=== PATIENT | male | born 1940 | race Caucasian/White ===

== ENCOUNTER 2022-10-24 20:53 | Inpatient (IN) | payer MEDICARE, MEDICAID ==
[~2022-10-24] VITALS: Ht 162.6 cm; Wt 54.9 kg
[2022-10-24] MEDS ORDERED: IV NORMAL SALINE 1000 ML BAG IV ONE (21:15)
[2022-10-24 21:22] LABS: HEMATOCRIT 41.4 % (36.7-47.1); MEAN CORPUSCULAR HEMOGLOBIN 30.2 uug (23.8-33.4); MEAN CORPUSCULAR VOLUME 91.4 fL (73.0-96.2); PLATELET COUNT (AUTO) 198 K/uL (152-348)
[2022-10-24 21:39] LABS: CARBON DIOXIDE 33 mmol/L (21-32); CHLORIDE 106 mmol/L (98-107); CREATININE 1.4 mg/dL (0.6-1.3); GLUCOSE 151 mg/dL (74-106); POTASSIUM 3.7 mmol/L (3.5-5.1); UREA NITROGEN, BLOOD 36 mg/dL (7-18)
--- NOTE | 2022-10-24 21:44 | NUR ---
Patient incontinent in brief. Had large yellow urine. Unable to collect urine sample this time.
--- NOTE | 2022-10-24 21:50 | NUR ---
Performed skin assessment. Noted some bruising to mid upper back. Per son, patient had a fall 2 days ago at home and patient landed on his bottom.
[2022-10-24 21:51] LABS: ALANINE AMINOTRANSFERASE 18 U/L (16-63); ALKALINE PHOSPHATASE 138 U/L (50-136); ASPARTATE AMINOTRANSFERASE 51 U/L (15-37); BILIRUBIN,DIRECT 0.1 mg/dL (0.0-0.2); BILIRUBIN,TOTAL 0.4 mg/dL (0.2-1.0); TOTAL PROTEIN, SERUM 7.8 g/dL (6.4-8.2)
[2022-10-24] MEDS ORDERED: AZITHROMYCIN IV 500 MG in IV DEXTROSE 5% 250 ML IV ONE (22:00)
[2022-10-24] MEDS ORDERED: CEFTRIAXONE 1 G in IV DEXTROSE 5% 50 ML IV ONE (22:00)
[2022-10-24 22:06] LABS: MAGNESIUM 2.1 mg/dL (1.8-2.4)
[2022-10-24] MEDS ORDERED: CARB25TA3 PO (22:07)
[2022-10-24] MEDS ORDERED: LEVE500T20 PO ×2 (22:07→22:48)
[2022-10-24] MEDS ORDERED: ATOR10TA PO (22:07)
[2022-10-24] MEDS ORDERED: CLONIDINE HCL 0.1 MG TABLET ONE (22:09)
[2022-10-24] MEDS ORDERED: CEFTRIAXONE /D5W 50ML IVPB **ER PYXIS IV ONE (22:09)
[2022-10-24] MEDS ORDERED: CLONIDINE HCL 0.1 MG TABLET PO ONE (22:15)
--- NOTE | 2022-10-24 22:15 | NUR ---
Patient has been admitted by Chiki Villegas LABOR SERVICE REPRESENTATIVE
[2022-10-24] MEDS ORDERED: AZITHROMYCIN 500MG/ D5W 250ML IVPB **ER PYXIS ONLY IV ONE (22:34)
[2022-10-24] MEDS ORDERED: CARB1TAB39 PO (22:48)
[2022-10-24] MEDS ORDERED: LOSA50TA39 PO (22:48)
[2022-10-24] MEDS ORDERED: ATOR20TA PO (22:48)
[2022-10-25] MEDS ORDERED: IV 1/2NS 1000 ML 1,000 ML IV PRN
[2022-10-25] MEDS ORDERED: ACETAMINOPHEN 325 MG TABLET PO PRN
[2022-10-25] MEDS ORDERED: ONDANSETRON 4 MG/2 ML VIAL IV PRN
[2022-10-25] MEDS ORDERED: hydrALAZINE HCL 20 MG/1 ML VIAL IV PRN
[2022-10-25] MEDS ORDERED: REMEDY ESSENTIAL ZINC PASTE 113 GM TP PRN
--- NOTE | 2022-10-25 00:50 | NUR ---
IN N OUT cath cancelled. Patient was able to provide urine sample
--- NOTE | 2022-10-25 00:54 | NUR ---
Urine sent to lab
--- NOTE | 2022-10-25 00:54 | NUR ---
Patient pulled out IV on right hand. Replaced #20G to left AC.
[2022-10-25] MEDS ORDERED: hydrALAZINE HCL 20 MG/1 ML VIAL ONE (01:17)
[2022-10-25 01:25] LABS: *BILIRUBIN,URIN NEGATIVE (NEGATIVE); *BLOOD, URINE 2+ (NEGATIVE); *COLOR,URINE YELLOW (YELLOW); *KETONES,URINE NEGATIVE (NEGATIVE); LEUKOCYTE ESTERASE ,URINE 1+ (NEGATIVE); NITRITE, URINE NEGATIVE (NEGATIVE); PH,URINE 6.5 (5.0-8.0); UGLUCOSE NEGATIVE (NEGATIVE)
[2022-10-25 01:28] LABS: *CLARITY,URINE SLIGHTLY CLOUDY (CLEAR)
--- NOTE | 2022-10-25 01:30 | NUR ---
Patient taken to CT via gurney.
--- NOTE | 2022-10-25 02:22 | NUR ---
Called upstairs to give report. Nurse unavaliable at this time. Waiting for call back.
[2022-10-25 02:47] LABS: RBC,URINE 20-50 /HPF (0-3)
[2022-10-25 02:48] LABS: BACTERIA,URINE MODERATE /HPF (NONE SEEN); SQUAMOUS EPITHELIAL CELL,UR NONE SEEN /HPF (NONE SEEN)
--- NOTE | 2022-10-25 02:50 | NUR ---
Report given to Bob MERRITT.
--- NOTE | 2022-10-25 03:04 | NUR ---
REPORT RECEIVED FROM EDDIE MERRITT.
--- NOTE | 2022-10-25 03:04 | NUR ---
Called son Rachel to verify Code Status of patient. Unable to reach, voicemail is full.
--- NOTE | 2022-10-25 03:20 | NUR ---
Patient taken to third floor room 316 with personal belongings via gurney. Patient in stable conditions, no signs of distress. Bob RN aware of patients arrival.
[2022-10-25 03:30] VITALS: BP 146/72
--- NOTE | 2022-10-25 03:30 | NUR ---
PATIENT ADMITTED FROM ER VIA GURNEY IN STABLE CONDITION. NO RESP DISTRESS OR SOB NOTED. PATIENT GENTLY TRANSFERRED TO BED AND MADE COMFORTABLE. PATIENT IS FARSI SPEAKING. BELONGINGS INVENTORIED. ALL NEEDS MET AND ANTICIPATED. CALL LIGHT IN REACH AND FUNCTIONAL. WILL CONTINUE TO MONITOR.
[2022-10-25] MEDS: PANTOPRAZOLE SODIUM 40 MG TABLET.DR PO SCH (06:03)
[2022-10-25 07:52] LABS: CREATININE 1.3 mg/dL (0.6-1.3); MAGNESIUM 2.1 mg/dL (1.8-2.4); PHOSPHOROUS 3.4 mg/dL (2.5-4.9); POTASSIUM 3.8 mmol/L (3.5-5.1)
[2022-10-25 07:55] LABS: HEMATOCRIT 38.3 % (36.7-47.1); MEAN CORPUSCULAR VOLUME 90.6 fL (73.0-96.2); PLATELET COUNT (AUTO) 180 K/uL (152-348)
[2022-10-25 07:59] LABS: THYROID STIMULATING HORMONE 1.611 mIU/mL (0.358-3.740)
[2022-10-25] MEDS: levETIRAcetam 250 MG TABLET PO SCH ×2 (09:19→21:00)
[2022-10-25] MEDS: LOSARTAN POTASSIUM 50 MG TABLET PO SCH ×2 (09:35→21:00)
[2022-10-25 11:37] VITALS: BP 127/63
[2022-10-25] MEDS ORDERED: CARB1TAB21 PO ×2 (14:27)
[2022-10-25] MEDS ORDERED: LEVE250T4 PO (14:27)
[2022-10-25] MEDS: CEFTRIAXONE 1 G in IV DEXTROSE 5% 50 ML IV SCH (17:50)
[2022-10-25] MEDS ORDERED: CARBIDOPA/LEVODOPA CR 25-100MG TABLET.SA PO SCH (18:15)
[2022-10-25] MEDS ORDERED: levETIRAcetam 250 MG TABLET PO SCH (18:15)
[2022-10-25 20:00] VITALS: BP 166/85
[2022-10-25] MEDS: AZITHROMYCIN IV 500 MG in IV DEXTROSE 5% 250 ML IV SCH (20:06)
[2022-10-25] MEDS: ATORVASTATIN 20 MG TABLET PO SCH (21:00)
[2022-10-25] MEDS: CARBIDOPA/LEVODOPA 25-100MG TABLET PO SCH (21:00)
[2022-10-25 22:24] VITALS: BP 114/61
[2022-10-26] VITALS: BP 141/70
--- NOTE | 2022-10-26 00:37 | NUR ---
Troponin results 256 relayed to Pauline Pacheco NP no new order.
[2022-10-26] MEDS ORDERED: ACETAMINOPHEN 650 MG SUPP.RECT RC PRN (01:15)
[2022-10-26] MEDS ORDERED: levETIRAcetam 500 MG/5 ML VIAL IV ONE (01:50)
[2022-10-26] MEDS: levETIRAcetam IV 250 MG in IV DEXTROSE 5% 100 ML IV SCH ×3 (02:07→21:37)
[2022-10-26 04:00] VITALS: BP 119/67
--- NOTE | 2022-10-26 06:24 | NUR ---
Patient slept intermittently, responsive to verbal and tactile stimuli. Refused po meds. Tylenol changed to supp and keppra changed to IV. In no acute distress, no signs of pain/discomfort. Sinus rhythm on tele. IV access to LAC intact and patent. Needs assessed and attended to.
[2022-10-26] MEDS: PANTOPRAZOLE SODIUM 40 MG TABLET.DR PO SCH (06:36)
[2022-10-26 07:14] LABS: HEMATOCRIT 35.6 % (36.7-47.1); MEAN CORPUSCULAR HEMOGLOBIN 29.7 uug (23.8-33.4); MEAN CORPUSCULAR VOLUME 90.2 fL (73.0-96.2); PLATELET COUNT (AUTO) 160 K/uL (152-348)
[2022-10-26 07:32] LABS: BILIRUBIN,TOTAL 0.7 mg/dL (0.2-1.0); CREATININE 1.3 mg/dL (0.6-1.3); MAGNESIUM 2.2 mg/dL (1.8-2.4); PHOSPHOROUS 4.2 mg/dL (2.5-4.9); POTASSIUM 3.6 mmol/L (3.5-5.1); TOTAL PROTEIN, SERUM 6.5 g/dL (6.4-8.2)
[2022-10-26] MEDS: LOSARTAN POTASSIUM 50 MG TABLET PO SCH ×2 (08:58→20:38)
[2022-10-26] MEDS: CARBIDOPA/LEVODOPA 25-100MG TABLET PO SCH ×4 (08:58→20:37)
[2022-10-26 11:48] VITALS: BP 139/57
--- NOTE | 2022-10-26 15:01 | NUR ---
Pt. is awake. Non verbal. No acute distress noted. No s/s of pain noted. All need attended and met. IV line clean and intact. Needs assist for meal. Pt. is incontinent and is on diaper. Will keep monitoring the patient.
[2022-10-26 16:59] VITALS: BP 150/82
[2022-10-26] MEDS: CEFTRIAXONE 1 G in IV DEXTROSE 5% 50 ML IV SCH (18:04)
--- NOTE | 2022-10-26 20:00 | NUR ---
Received patient in bed, awake, confused. Son at bedside. No SOB, not on any form of distress. IV access on LAC intact and patent.
[2022-10-26] MEDS: AZITHROMYCIN IV 500 MG in IV DEXTROSE 5% 250 ML IV SCH (20:27)
[2022-10-26] MEDS: ATORVASTATIN 20 MG TABLET PO SCH (20:37)
[2022-10-26 20:41] VITALS: BP 137/67
[2022-10-27 00:06] VITALS: BP 132/60
[2022-10-27 04:17] VITALS: BP 132/74
[2022-10-27] MEDS: PANTOPRAZOLE SODIUM 40 MG TABLET.DR PO SCH (06:33)
[2022-10-27 07:18] LABS: MEAN CORPUSCULAR HEMOGLOBIN 29.6 uug (23.8-33.4); MEAN CORPUSCULAR VOLUME 90.7 fL (73.0-96.2); PLATELET COUNT (AUTO) 176 K/uL (152-348)
[2022-10-27 08:19] LABS: CREATININE 1.3 mg/dL (0.6-1.3); MAGNESIUM 2.2 mg/dL (1.8-2.4); PHOSPHOROUS 3.1 mg/dL (2.5-4.9); POTASSIUM 3.4 mmol/L (3.5-5.1)
[2022-10-27] MEDS: levETIRAcetam IV 250 MG in IV DEXTROSE 5% 100 ML IV SCH ×2 (09:01→21:04)
[2022-10-27] MEDS: CARBIDOPA/LEVODOPA 25-100MG TABLET PO SCH ×4 (09:01→21:05)
[2022-10-27] MEDS: LOSARTAN POTASSIUM 50 MG TABLET PO SCH ×2 (09:01→21:04)
[2022-10-27] MEDS: POTASSIUM CHLORIDE 10 MEQ, LIDOCAINE-MPF 1% 1 ML in IV DEXTROSE 5% 100 ML IV SCH ×2 (10:42→12:00)
[2022-10-27 11:38] VITALS: BP 150/60
[2022-10-27] MEDS: ENSURE ENLIVE (VAN) 240 ML LIQUID PO SCH (16:24)
[2022-10-27 16:38] VITALS: BP 138/58
[2022-10-27] MEDS: CEFTRIAXONE 1 G in IV DEXTROSE 5% 50 ML IV SCH (17:19)
--- NOTE | 2022-10-27 18:00 | NUR ---
Pt. is non verbal. No s/s of pain noted. Bowel soft and non tender. No acute distress noted. Family noted at his bed side. Repositioned every 2 hours and as needed. Will keep monitoring the patient.
[2022-10-27] MEDS: ATORVASTATIN 20 MG TABLET PO SCH (21:04)
[2022-10-27] MEDS: AZITHROMYCIN 250 MG TABLET PO SCH (21:09)
[2022-10-27 21:31] VITALS: BP 131/64
[2022-10-28 00:31] VITALS: BP 130/58
[2022-10-28 04:13] VITALS: BP 148/67
--- NOTE | 2022-10-28 07:30 | NUR ---
RECEIVED PATIENT IN BED ON A POSITION WITH BOTH EYES OPEN BUT NON-VERBAL, NO SS OF PAIN OR DISTRESS. SATURATING 97% ON RA. CONTINUE WITH TELE OBSERVATION
[2022-10-28] MEDS: PANTOPRAZOLE SODIUM 40 MG TABLET.DR PO SCH (07:33)
[2022-10-28 07:52] LABS: HEMATOCRIT 38.1 % (36.7-47.1); MEAN CORPUSCULAR HEMOGLOBIN 29.7 uug (23.8-33.4); MEAN CORPUSCULAR VOLUME 91.6 fL (73.0-96.2); PLATELET COUNT (AUTO) 202 K/uL (152-348)
[2022-10-28 08:27] LABS: BILIRUBIN,TOTAL 0.7 mg/dL (0.2-1.0); CREATININE 1.1 mg/dL (0.6-1.3); MAGNESIUM 2.2 mg/dL (1.8-2.4); PHOSPHOROUS 3.5 mg/dL (2.5-4.9); POTASSIUM 3.5 mmol/L (3.5-5.1); TOTAL PROTEIN, SERUM 6.2 g/dL (6.4-8.2)
[2022-10-28] MEDS: CARBIDOPA/LEVODOPA 25-100MG TABLET PO SCH ×4 (08:43→21:45)
[2022-10-28] MEDS: ENSURE ENLIVE (VAN) 240 ML LIQUID PO SCH ×3 (08:43→15:52)
[2022-10-28] MEDS: LOSARTAN POTASSIUM 50 MG TABLET PO SCH ×2 (08:43→21:46)
[2022-10-28] MEDS: levETIRAcetam IV 250 MG in IV DEXTROSE 5% 100 ML IV SCH ×2 (08:44→21:21)
[2022-10-28 11:10] VITALS: BP 121/55
--- NOTE | 2022-10-28 12:00 | NUR ---
NO ACUTE CHANGED FROM MORNING ASSESSMENT
[2022-10-28 15:02] VITALS: BP 115/59
--- NOTE | 2022-10-28 15:37 | NUR ---
AWATING PLACEMENT FOR SNF
[2022-10-28] MEDS: CEFTRIAXONE 1 G in IV DEXTROSE 5% 50 ML IV SCH (15:52)
[2022-10-28 21:03] VITALS: BP 120/58
[2022-10-28] MEDS: AZITHROMYCIN 250 MG TABLET PO SCH (21:45)
[2022-10-28] MEDS: ATORVASTATIN 20 MG TABLET PO SCH (21:46)
[2022-10-29 00:18] VITALS: BP 142/52
[2022-10-29 04:18] VITALS: BP 131/71
[2022-10-29] MEDS: PANTOPRAZOLE SODIUM 40 MG TABLET.DR PO SCH (05:22)
--- NOTE | 2022-10-29 09:22 | NUR ---
PATIENT SEEN BY DR MIXON CARDIO WITH NEW ORDER TO D/C TELE AND NOTED.
--- NOTE | 2022-10-29 10:00 | NUR ---
IN BED AWAKE NON VERBAL CONFUSED AND DISORIENTED TOTALLY DEPENDENT ON ALL ADL TURNED AND REPOSITIONED Q2H ALL NEEDS ANTICIPATED AND SATISFIED PATIENT IS CURLED UP POSITION TENDS TO DRAW BOTH LEGS IN MULTIPLE PILLOWS USED TO REPOSITION AND FLOAT HEELS.REMAIN ON ATB WITH NO ADVERSE OR ALLERGIC REACTIONS AT THIS TIME.DUE MEDS GIVEN IN APPLE SAUCE WILL CONTINUE TO OBSERVE.
[2022-10-29] MEDS: CARBIDOPA/LEVODOPA 25-100MG TABLET PO SCH ×3 (10:06→17:39)
[2022-10-29] MEDS: levETIRAcetam IV 250 MG in IV DEXTROSE 5% 100 ML IV SCH (10:07)
[2022-10-29] MEDS: LOSARTAN POTASSIUM 50 MG TABLET PO SCH (10:07)
[2022-10-29] MEDS: ENSURE ENLIVE (VAN) 240 ML LIQUID PO SCH ×3 (10:42→17:39)
[2022-10-29 11:55] VITALS: BP 114/69
[2022-10-29] MEDS ORDERED: LOSA50TA39 PO (15:35)
[2022-10-29] MEDS ORDERED: LEVO250S3 PO (15:35)
[2022-10-29] MEDS ORDERED: levoFLOXacin 500 MG/D5W 500 MG in PREMIXED 1 EACH IV SCH (16:30)
--- NOTE | 2022-10-29 16:30 | NUR ---
PER STRAP SETTER PATIENT WILL BE PICKED UP BY [facility] AT 1900 FAMILY AT THE BEDSIDE AND AWARE WILL START THE DISCHARGE PAPERS
[2022-10-29 17:39] VITALS: BP 116/49
--- NOTE | 2022-10-29 18:50 | NUR ---
PATIENT DISCHARGED PICKED UP BY [facility] IN SATISFACTORY CONDITION WITH DISCHARGE INSTRUCTIONS GIVEN TO HIS DAUGHTER JUANITA AND SHE EXPRESSED UNDERSTANDING.
[2022-10-30] MEDS ORDERED: LEVOFLOXACIN/D5W 250 MG in PREMIX 1 EA IV SCH (16:30)
== END 2022-10-29 18:54 | disposition home health service (06) | DRG 871 ==
LOC: ER 20:53 → TELE3 23:08 → MEDSURG3 10-25 09:19 → TELE3 10-25 12:36 → MEDSURG3 10-29 09:25
PROVIDERS: ADMIT Internal Medicine; ATTEND Internal Medicine
DX: A41.9 Sepsis, unspecified organism (principal); G92.8 Other toxic encephalopathy; N17.0 Acute kidney failure with tubular necrosis; J69.0 Pneumonitis due to inhalation of food and vomit; I21.A1 Myocardial infarction type 2; N39.0 Urinary tract infection, site not specified; E87.0 Hyperosmolality and hypernatremia; J98.11 Atelectasis; J90 Pleural effusion, not elsewhere classified; D68.69 Other thrombophilia; I16.0 Hypertensive urgency; E78.5 Hyperlipidemia, unspecified; E86.0 Dehydration; G40.909 Epilepsy, unspecified, not intractable, without status epilepticus; I25.10 Atherosclerotic heart disease of native coronary artery without angina pectoris; I25.2 Old myocardial infarction; I50.9 Heart failure, unspecified; I70.0 Atherosclerosis of aorta; R62.7 Adult failure to thrive; Z20.822 Contact with and (suspected) exposure to COVID-19; G20 Parkinson's disease; F02.80 Dementia in other diseases classified elsewhere, unspecified severity, without behavioral disturbance, psychotic disturbance, mood disturbance, and anxiety; R73.9 Hyperglycemia, unspecified; Z74.09 Other reduced mobility; I95.1 Orthostatic hypotension; I11.0 Hypertensive heart disease with heart failure; Z68.20 Body mass index [BMI] 20.0-20.9, adult; B95.2 Enterococcus as the cause of diseases classified elsewhere
CPT/HCPCS: 36415; 70450; 71045; 76770; 83605; 83735; 84100; 84443; 84484; 85025; 85730; 87040; 93005; 93307; A4663; A6209; C1758; G0378; J0360; J0456; J0696; J1953; J1956; J2001; J3480; J7040; J7050; Q0144